=== PATIENT | female | born 1980 | race Two or more races ===

== ENCOUNTER 2017-09-20 18:39 | Emergency (ER) | payer OTHER ==
[~2017-09-20] VITALS: Ht 152.4 cm; Wt 58.7 kg
[2017-09-20 19:16] LABS: BASOPHILS # (AUTO) 0.08 x10^3/uL (0-0.1); BASOPHILS % (AUTO) 1 % (0-1); EOSINOPHILS # (AUTO) 0.32 x10^3/uL (0-0.4); EOSINOPHILS % (AUTO) 3 % (1-7); LYMPHOCYTES # (AUTO) 4.43 x10^3/uL (1-3.4); LYMPHOCYTES % (AUTO) 44 % (22-44); MD NO; MEAN CORPUSCULAR HGB CONC 33.3 g/dL (32.4-35.8); MEAN CORPUSCULAR VOLUME 93.1 fL (80-100); MEAN PLATELET VOLUME 9.1 fL (7.4-10.4); MONOCYTES % (AUTO) 10 % (2-9); NEUTROPHILS % (AUTO) 42 % (42-75); PLATELET COUNT 227 x10^3/uL (130-400); RED CELL DISTRIBUTION WIDTH 14.9 % (9.6-15.2)
[2017-09-20 19:28] LABS: ALBUMIN 3.8 g/dL (3.4-5.0); ANION GAP 8 mmol/L (5-15); CALCIUM 8.9 mg/dL (8.5-10.1); CHLORIDE 109 mmol/L (98-107)
[2017-09-20 19:33] LABS: ALANINE AMINOTRANSFERASE 46 U/L (12-78); ALKALINE PHOSPHATASE 58 U/L (45-117); BILIRUBIN,TOTAL 0.4 mg/dL (0.2-1.0); CREATININE 0.58 mg/dL (0.55-1.02); TOTAL PROTEIN 8.6 g/dL (6.4-8.2)
[2017-09-20 20:00] LABS: MICROSCOPIC INDICATED
[2017-09-20 20:14] LABS: CULTURE INDICATED? NO
[2017-09-20 20:41] VITALS: BP 135/79
== END 2017-09-20 20:44 | disposition home or self-care (01) ==
LOC: ED 20:38
DX: O20.0 Threatened abortion (principal)
CPT/HCPCS: 36415; 76801; 80053; 81001; 84702; 85025; 86901; 99285

== ENCOUNTER 2018-04-21 00:15 | Outpatient (CLI) | payer OTHER ==
[~2018-04-21] VITALS: Ht 153.2 cm; Wt 67.0 kg
[2018-04-21 00:50] VITALS: BP 124/85
== END 2018-04-21 02:07 | disposition home or self-care (01) ==
LOC: LDOP 00:15
PROVIDERS: ATTEND Obstetrics & Gynecology
DX: O62.9 Abnormality of forces of labor, unspecified (principal); Z3A.38 38 weeks gestation of pregnancy
CPT/HCPCS: 59025; 99211; G0463

== ENCOUNTER 2018-04-21 13:52 | Inpatient (IN) | payer OTHER ==
[~2018-04-21] VITALS: Ht 152.4 cm; Wt 67.3 kg
[2018-04-21] MEDS ORDERED: OXYTOCIN 30U/ 0.9% NaCL 500ML 500 ML IV ONE (14:01)
[2018-04-21] MEDS ORDERED: D5%-LACTATED RINGERS 1,000 ML IV SCH (14:01)
[2018-04-21] MEDS ORDERED: OXYTOCIN 30U/ 0.9% NaCL 500ML 500 ML IV PRN (14:01)
[2018-04-21] MEDS: LACTATED RINGERS 1,000 ML IV SCH ×3 (14:12→21:45)
[2018-04-21] MEDS ORDERED: NEWBORN KIT ONE (14:24)
[2018-04-21] MEDS ORDERED: LIDOCAINE/PF 1%, 30ML ONE (14:24)
[2018-04-21] MEDS ORDERED: MISOPROSTOL 200 MCG TABLET ONE (14:24)
[2018-04-21] MEDS ORDERED: PENICILLIN GK 5,000,000 UNITS in SODIUM CHLORIDE 0.9% 100 ML IVPB ONE (14:30)
[2018-04-21] MEDS ORDERED: FENTANYL PF 100 MCG/2ML IV PRN (14:30)
[2018-04-21] MEDS ORDERED: ONDANSETRON 2MG/ML, 2ML IVPush PRN (14:30)
[2018-04-21] MEDS ORDERED: PENICILLIN GK 2,500,000 UNITS in DEXTROSE 5% 100 ML IVPB SCH (14:30)
[2018-04-21] MEDS ORDERED: PLEASE ENTER HEIGHT AND WEIGHT MC SCH (14:30)
[2018-04-21 14:43] LABS: BASOPHILS # (AUTO) 0.06 x10^3/uL (0-0.1); BASOPHILS % (AUTO) 1 % (0-1); EOSINOPHILS # (AUTO) 0.03 x10^3/uL (0-0.4); EOSINOPHILS % (AUTO) 0 % (1-7); LYMPHOCYTES # (AUTO) 1.89 x10^3/uL (1-3.4); LYMPHOCYTES % (AUTO) 23 % (22-44); MD NO; MEAN CORPUSCULAR HEMOGLOBIN 27.6 pg (27.0-34.8); MEAN CORPUSCULAR HGB CONC 33.3 g/dL (32.4-35.8); MEAN CORPUSCULAR VOLUME 82.7 fL (80-100); MEAN PLATELET VOLUME 10.1 fL (7.4-10.4); MONOCYTES # (AUTO) 0.43 x10^3/uL (0.2-0.8); MONOCYTES % (AUTO) 5 % (2-9); NEUTROPHILS # (AUTO) 5.83 x10^3/uL (1.8-6.8); NEUTROPHILS % (AUTO) 71 % (42-75); PLATELET COUNT 235 x10^3/uL (130-400); RED BLOOD COUNT 4.39 x10^6/uL (3.82-5.3); RED CELL DISTRIBUTION WIDTH 17.1 % (9.6-15.2)
[2018-04-21] MEDS ORDERED: FENTANYL PF 100 MCG/2ML ONE ×3 (15:04→18:02)
[2018-04-21] MEDS: FENTANYL PF 100 MCG/2ML IVPush PRN ×3 (15:10→18:05)
[2018-04-21] MEDS ORDERED: FENTANYL/BUPIV./NS/PF 250 ML EPIDCONT SCH (17:24)
[2018-04-21] MEDS ORDERED: LACTATED RINGERS 1,000 ML IVBOLUS PRN (17:30)
[2018-04-21] MEDS ORDERED: OXYcodone/APAP 5/325MG TABLET PO PRN (18:00)
[2018-04-21] MEDS ORDERED: IBUPROFEN 600 MG TABLET PO PRN (18:00)
[2018-04-21] MEDS ORDERED: FENTANYL PF 500 MCG, BUPIVACAINE/PF 0.5%, 30ML 62.5 ML in SODIUM CHLORIDE 0.9% 177.5 ML EPIDCONT SCH (18:00)
[2018-04-21] MEDS ORDERED: MISOPROSTOL 200 MCG TABLET PR PRN (18:00)
[2018-04-21] MEDS ORDERED: OXYTOCIN 30U/ 0.9% NaCL 500ML 500 ML ONE ×2 (18:46→19:12)
[2018-04-21] MEDS ORDERED: OXYcodone/APAP 5/325MG TABLET ONE (19:11)
[2018-04-21] MEDS ORDERED: IBUPROFEN 600 MG TABLET ONE (19:11)
[2018-04-21 21:45] VITALS: BP 130/89
[2018-04-21] MEDS: OXYTOCIN 30U/ 0.9% NaCL 500ML 500 ML IV SCH (21:45)
[2018-04-21 23:36] VITALS: BP 116/76
[2018-04-22] MEDS: LACTATED RINGERS 1,000 ML IV SCH ×2 (01:24→09:24)
[2018-04-22 03:15] LABS: BASOPHILS # (AUTO) 0.08 x10^3/uL (0-0.1); BASOPHILS % (AUTO) 1 % (0-1); EOSINOPHILS # (AUTO) 0.01 x10^3/uL (0-0.4); EOSINOPHILS % (AUTO) 0 % (1-7); LYMPHOCYTES # (AUTO) 2.35 x10^3/uL (1-3.4); LYMPHOCYTES % (AUTO) 15 % (22-44); MD NO; MEAN CORPUSCULAR HEMOGLOBIN 27.9 pg (27.0-34.8); MEAN CORPUSCULAR HGB CONC 33.4 g/dL (32.4-35.8); MEAN CORPUSCULAR VOLUME 83.4 fL (80-100); MEAN PLATELET VOLUME 9.8 fL (7.4-10.4); MONOCYTES % (AUTO) 7 % (2-9); NEUTROPHILS # (AUTO) 11.87 x10^3/uL (1.8-6.8); NEUTROPHILS % (AUTO) 78 % (42-75); PLATELET COUNT 216 x10^3/uL (130-400); RED BLOOD COUNT 3.71 x10^6/uL (3.82-5.3); RED CELL DISTRIBUTION WIDTH 17.5 % (9.6-15.2)
[2018-04-22] MEDS: OXYTOCIN 30U/ 0.9% NaCL 500ML 500 ML IV SCH (03:46)
[2018-04-22 04:44] VITALS: BP 119/77
[2018-04-22 07:15] VITALS: BP 115/75
[2018-04-22] MEDS: PRENATAL VIT/IRON/FA 1 EACH TABLET PO SCH (08:04)
[2018-04-22] MEDS: DOCUSATE 100 MG CAPSULE PO PRN (08:04)
[2018-04-22 12:10] VITALS: BP 109/60
[2018-04-22 16:25] VITALS: BP 127/78
[2018-04-22 21:10] VITALS: BP 110/69
[2018-04-23 09:00] VITALS: BP 99/65
[2018-04-23] MEDS: PRENATAL VIT/IRON/FA 1 EACH TABLET PO SCH (09:00)
[2018-04-23] MEDS: DOCUSATE 100 MG CAPSULE PO PRN (09:13)
== END 2018-04-23 10:00 | disposition home or self-care (01) | DRG 807 ==
LOC: LDOP 13:52 → LDIP 14:19 → 2NW 21:19
PROVIDERS: ADMIT Obstetrics & Gynecology; ATTEND Obstetrics & Gynecology
PROC: 10E0XZZ Delivery of Products of Conception, External Approach (ICD-10-PCS; principal; 2018-04-21)
PROC: 0KQM0ZZ Repair Perineum Muscle, Open Approach (ICD-10-PCS; 2018-04-21)
PROC: 10907ZC Drainage of Amniotic Fluid, Therapeutic from Products of Conception, Via Natural or Artificial Opening (ICD-10-PCS; 2018-04-21)
DX: O69.81X0 Labor and delivery complicated by cord around neck, without compression, not applicable or unspecified (principal); Z37.0 Single live birth; O99.824 Streptococcus B carrier state complicating childbirth; O24.420 Gestational diabetes mellitus in childbirth, diet controlled; Z3A.38 38 weeks gestation of pregnancy; O70.1 Second degree perineal laceration during delivery; Z23 Encounter for immunization
CPT/HCPCS: 36415; 82962; 85025; 86850; 86900; 90656; G0378; J2540; J3010; J2590; J7120

== ENCOUNTER 2018-04-30 14:36 | Emergency (ER) | payer OTHER ==
[~2018-04-30] VITALS: Ht 152.4 cm; Wt 59.6 kg
[2018-04-30 14:52] VITALS: BP 133/89
[2018-04-30] MEDS ORDERED: LIDOCAINE-MPF 1%, 5ML INFIL ONE (15:00)
[2018-04-30] MEDS ORDERED: LIDOCAINE-MPF 1%, 5ML ONE (15:21)
[2018-04-30] MEDS ORDERED: PRENATAL VITAMIN (15:35)
[2018-04-30] MEDS ORDERED: BACITRACIN ZINC OINT 500U/GM, 0.9 GM ONE (16:23)
== END 2018-04-30 16:53 | disposition home or self-care (01) ==
LOC: ED 16:47
DX: S61.412A Laceration without foreign body of left hand, initial encounter (principal); X58.XXXA Exposure to other specified factors, initial encounter; Y93.89 Activity, other specified; Y92.009 Unspecified place in unspecified non-institutional (private) residence as the place of occurrence of the external cause; Y99.8 Other external cause status
CPT/HCPCS: 12041; 99284